=== PATIENT | male | born 1980 | race Asian ===

== ENCOUNTER 2017-02-26 20:03 | Emergency (ER) | payer OTHER, MEDICAID ==
[2017-02-26 20:22] VITALS: BP 119/69
[2017-02-26] MEDS ORDERED: DOXYcycline CAP(*) 100 MG PO ONE (20:52)
--- NOTE | 2017-02-26 20:55 | UC ---
Skin Complaint HPI - HPI Summary HPI Summary: 36 y/o male presents to the urgent care s/o of a tick on his RT foot he noticed 1 hr ago and is concern about Lyme disease. Pt reports [place] , but he does'nt know how long the tick has been in his foot. Pt denies fever, MORSE, SOB, cough, chest pain, N/V/D. - History of Current Complaint Chief Complaint: UCSkin Time Seen by Provider: 02/26/17 20:41 Stated Complaint: TICK BITE Hx Obtained From: Patient Onset/Duration: Sudden Onset, Lasting Hours, Still Present Skin Exposure Onset/Duration: Hours Ago Timing: Constant Onset Severity: Mild Current Severity: Mild Pain Intensity: 0 Location: Foot (Right) - medial side of RT foot with a tick bite Character: Redness Aggravating: Touch Alleviating: Nothing Associated Signs & Symptoms: Positive: Rash. Negative: Nausea, Vomiting, Numbness, Fever, Chills, Bruising, Tenderness, Joint Swelling Related History: Insect Bite/Sting - Allergy/Home Medications Allergies/Adverse Reactions: Allergies Allergy/AdvReac Type Severity Reaction Status Date / Time Ibuprofen [From Motrin] Allergy Intermediate Hives Verified 02/26/17 20:22 Home Medications: Home Medications NK [No Home Medications Reported] 02/26/17 [History Confirmed 02/26/17] Review of Systems Constitutional: Negative Skin: Rash - tick bite of his right foot Eyes: Negative ENT: Negative Respiratory: Negative Cardiovascular: Negative Gastrointestinal: Negative Genitourinary: Negative Motor: Negative Neurovascular: Negative Musculoskeletal: Negative Neurological: Negative Psychological: Negative All Other Systems Reviewed And Are Negative: Yes PMH/Surg Hx/FS Hx/Imm Hx Previously Healthy: Yes - Surgical History Surgical History: Yes Surgery Procedure, Year, and Place: 2009 - appendectomy - Family History Known Family History: Positive: Unknown - Social History Occupation: Employed Full-time Lives: With Family Alcohol Use: None Substance Use Type: None Smoking Status (MU): Never Smoked Tobacco Have You Smoked in the Last Year: No Physical Exam Triage Information Reviewed: Yes Appearance: Well-Appearing, No Pain Distress, Well-Nourished, Thin Vital Signs: Initial Vital Signs Temp 98.2 F 02/26/17 20:20 Pulse 60 02/26/17 20:20 Resp 20 02/26/17 20:20 BP 119/69 02/26/17 20:20 Pulse Ox 99 02/26/17 20:20 Vital Signs Reviewed: Yes Eye Exam: Normal Eyes: Positive: Conjunctiva Clear - PERRLA, EOMI, Fundi grossly normal ENT Exam: Normal ENT: Positive: Normal ENT inspection, Hearing grossly normal, Pharynx normal, TMs normal Neck exam: Normal Neck: Positive: Supple, Nontender, No Lymphadenopathy Respiratory Exam: Normal Respiratory: Positive: Chest non-tender, Lungs clear, Normal breath sounds Cardiovascular Exam: Normal Cardiovascular: Positive: RRR, No Murmur, Pulses Normal Abdominal Exam: Normal Abdomen Description: Positive: Nontender, No Organomegaly, Soft. Negative: CVA Tenderness (R), CVA Tenderness (L) Bowel Sounds: Positive: Present Musculoskeletal Exam: Normal Musculoskeletal: Positive: Strength Intact, ROM Intact, No Edema Neurological Exam: Normal Psychological Exam: Normal Skin: Positive: rashes - Positive tick bite with alive tick above the medial right malleolus. Course/Dx - Course Course Of Treatment: 36 male c/o tick bite 1 hr ago: Hx obtained. PE abnormal finding: Positive tick bite with alive tick above the medial right malleolus. Tick was removed from using twister technique. After tick removal and the skin cleansing. Pt advised to observe the area for the development or Erythema Migrans for upto 30 days following exposure. Components of the tick saliva can cause transient erythema that should no be confused with Erythema Migrans. Antibiotic prophylaxis with Doxycycline given to the patient to prevent lyme Disease.. Pt tolerated well medication. - Differential Diagnoses - Skin Complaint Differential Diagnoses: Cellulitis, Eczema, Scabies, Tick Born Illness, Urticaria - Diagnoses Provider Diagnoses: tick bite on right foot Discharge - Discharge Plan Condition: Stable Disposition: HOME Patient Education Materials: Tick Bite (ED) Referrals: Doroteo Driver MD [Primary Care Provider] - Additional Instructions: Please observe the area for the development or Erythema Migrans for upto 30 days following exposure. Components of the tick saliva can cause transient erythema that should no be confused with Erythema Migrans.Antibiotic prophylaxis with Doxycycline given today to prevent lyme Disease.. Pt tolerated well medication. If you develop a rash, fever, myalgoas please return to the urgent care for further treatment or f/u with your PCP
== END 2017-02-26 21:13 | disposition home or self-care (01) ==
LOC: UCEAST 20:03
DX: S90.861A Insect bite (nonvenomous), right foot, initial encounter (principal); W57.XXXA Bitten or stung by nonvenomous insect and other nonvenomous arthropods, initial encounter
CPT/HCPCS: 99212; A9270-GY; G0463